=== PATIENT | male | born 1945 | race Caucasian/White ===

== ENCOUNTER 2018-12-21 14:15 | Observation (INO) | payer MEDICARE ==
[~2018-12-21] VITALS: Ht 180.3 cm; Wt 88.9 kg
--- NOTE | 2018-12-21 13:58 | NUR ---
PT ARRIVED VIA TRANSPORT FROM [facility] IN [place], PT VERY WEAK TRANSFERRED TO BED FROM [facility]. FAMILY AT BEDSIDE. PT DROWSY, ALERT AND ORIENTED X4, BUT PER FAMILY PT BECOMES CONFUSED WITH FEVERS. ORIENTED PT AND FAMILY TO ROOM AND CALL LIGHT, EDUCATED ON DROPLET PRECAUTIONS, PT DOES NOT OPEN HIS EYES, ANSWERS ARE HESITANT DOES NOT ANSWER ALL QUESTIONS. AT BEDSIDE, SHE ANSWERS THE QUESTIONS HE DOES NOT ANSWER. DISCUSSED POC, ALL IN AGREEMENT. PT DRINKING WATER NO SIGNS OF DISTRESS NOTED, RESP EVEN AND UNLABORED, 02 3L NC. ADMISSION ASSESSMENT COMPLETED AT THIS TIME. CALL LIGHT IN REACH,CONTINUE TO MONITOR.
[2018-12-21 14:00] VITALS: BP 119/62
[~2018-12-21 14:15] MED LIST: AMOXICILLIN500 MG PO; ASPIRIN CHEWABL81 MG PO; ASPIRIN LOW DOS81 M2 PO; ASPIRIN81 MG PO; ATENOLOL25 MG PO; FENOFIBRATE145 MG PO; FISH OIL1000 MG PO; FLOMAX0.4 M1 PO; GLIPIZIDE5 MG PO; JANUMET1 TA1 PO; JANUVIA50 MG PO; LEVEMIR1000 UNITS SC; LOPRESSOR 550 MG/TAB PO; MAGNESIUM400 MG PO; METFORMIN HCL500 M1 PO; METOPROL TAR25 MG PO; MULTI VIT PO; OMEPRAZOLE20 M2 PO; RYTHMOL150 MG PO; SIMVASTATIN20 MG PO; TAMSULOSIN0.4 MG PO; TENORMIN PO; TRICOR145 MG PO; WARFARIN4 MG PO; ZOFRAN ODT4 MG PO
[2018-12-21 14:46] LABS: HEMATOCRIT 34.1 % (39.0-50.0); HEMOGLOBIN 11.1 g/dl (14.0-18.0); IMMATURE GRANULOCYTES 0.2 % (0.0-5.0); MEAN CELL VOLUME 85.9 fL CALC (80.0-100.0); MEAN CORPUSCULAR HGB CONC 32.6 g/L CALC (32.0-36.0); NEUT# 4.47 thou/uL (1.82-7.42); RED BLOOD COUNT 3.97 mill/uL (4.70-6.10); RED CELL DISTRI WIDTH 13.9 % (11.5-15.5)
--- NOTE | 2018-12-21 15:34 | NUR ---
PT MEDICATED WITH TAMIFLU, NOTED PT SHIVERING, REQUESTING BLANKETS. NOTIFIED FREIGHT SHIPPING AGENT FOR TYLENOL ORDERS. CALL LIGHT IN REACH,CONTINUE TO MONITOR.
--- NOTE | 2018-12-21 16:01 | NUR ---
PT MEDICATED WITH TYLENOL. PT REQUESTING BLANKETS INFORMED PT THAT WOULD ONLY INCREASE HIS TEMPERATURE. PT UPSET STATES WE ARE NOT DOING ANYTHING FOR HIM. EDUCATED PT AND FAMILY THE IMPORTANCE OF NOT COVERING PT WITH BLANKETS AND WARMING THE ROOM. FAMILY IN AGREEMENT, WILL RECHECK ONCE DUE. CALL LIGHT IN REACH,CONTINUE TO MONITOR.
[2018-12-21 16:23] LABS: URINE BILIRUBIN - DIPSTICK NEGATIVE (NEGATIVE); URINE BLOOD DIPSTICK NEGATIVE (NEGATIVE); URINE COLOR YELLOW; URINE GLUCOSE - DIPSTICK NEGATIVE (NEGATIVE); URINE KETONE NEGATIVE (NEGATIVE); URINE LEUK ESTERASE NEGATIVE (NEGATIVE); URINE NITRITE - DIPSTICK NEGATIVE (Negative); URINE PROTEIN - DIPSTICK NEGATIVE (NEG-TRACE); URINE SPECIFIC GRAVITY <=1.005; URINE UROBILINOGEN - DIPSTICK 0.2 E.U./dL (0.2)
--- NOTE | 2018-12-21 17:33 | NUR ---
DISCUSSED WITH PT AND FAMILY OF NPO STATUS, IVF INITAITED AT THIS TIME. CALL LIGHT IN REACH,CONTINUE TO MONITOR.
[2018-12-21] MEDS ORDERED: TENORMIN25 M1 PO (18:11)
[2018-12-21] MEDS ORDERED: LEVEMIR FL100 UNIT/M SC (18:14)
[2018-12-21 19:35] VITALS: BP 152/76
--- NOTE | 2018-12-21 20:19 | NUR ---
RECEIVED REPORT FROM NURSE KINSEY, PATIENT IN BED, MAINTAINED ON DROPLET PREACUTION, FEELS WARM, WILL CHECK TEMP, EVEN UNLABORED BREATHING
--- NOTE | 2018-12-21 22:59 | NUR ---
PATIENT CURRENTLY RESTING IN BED, NO DISCOMFORTS NOTED AT THIS TIME, RECHECKED TEMP 99.5 f. EVEN UNLABORED BREATHING CALL LIGHT AT REACH, IN ROOM.
[2018-12-22] VITALS (7 sets, daily range): BP systolic 116–141; BP diastolic 61–79
--- NOTE | 2018-12-22 01:00 | NUR ---
PATIENTS TEMP WAS 100.6, PRN TYLENOL RECTAL SUPP GIVEN, WILL RECHECKED TEMP, CURRENTLY RESTING IN BED EYES CLOSED CALL LIGHT AT REACH
--- NOTE | 2018-12-22 04:26 | NUR ---
RECHEKED TEMP 101F PRN TYLENOL SUPP GIVEN AT THIS TIME, WILL REEVALAUTE TEMP, PT ALERT AND ORIENTED X3, RESTLESS, IN ROOM, WILL CONTINUE TO MONITOR.CALL LIGHT AREACH
[2018-12-22 05:07] LABS: HEMATOCRIT 34.1 % (39.0-50.0); HEMOGLOBIN 10.9 g/dl (14.0-18.0); IMMATURE GRANULOCYTES 0.4 % (0.0-5.0); MEAN CELL VOLUME 86.3 fL CALC (80.0-100.0); MEAN CORPUSCULAR HGB 27.6 pG CALC (26.0-32.0); NEUT# 3.31 thou/uL (1.82-7.42); RED BLOOD COUNT 3.95 mill/uL (4.70-6.10); RED CELL DISTRI WIDTH 14.1 % (11.5-15.5)
[2018-12-22 05:31] LABS: ALBUMIN 4.2 g/dL (3.2-5.0); ALKALINE PHOSPHATASE 74 u/l (38-126); ANION GAP 15 (6-22 (CALC)); BILIRUBIN, TOTAL 0.4 mg/dL (0.0-1.4); BUN 8 mg/dL (8-23); BUN/CREATININE RATIO 10 (12-20 (CALC)); CARBON DIOXIDE 27 mmol/l (22-30); CHLORIDE 99 mmol/l (95-108); CREATININE 0.8 mg/dL (0.7-1.3); GFR > 60 ML/MIN (>=60 (CALC)); GFR FOR AFR.AMER. > 60 ML/MIN (>=60 (CALC)); MAGNESIUM 1.9 mg/dL (1.6-2.3); POTASSIUM 4.1 mmol/l (3.5-5.1); SGOT/AST 38 u/l (19-48); SODIUM 137 mmol/l (137-146); TOTAL PROTEIN 7.5 g/dL (6.3-8.2)
[2018-12-22 05:34] LABS: INTERNATIONAL NORMALIZED RATIO 1.3 RATIO (0.7-1.3); PROTHROMBIN TIME 13.6 SECONDS (9.0-12.5)
--- NOTE | 2018-12-22 07:10 | NUR ---
REPORT RECEIVED FROM TAMARA CLARK;PT APPEARS TO BE RESTING IN SEMI FOWLERS POSITION WITH SPOUSE AT BEDSIDE;INTRODUCED SELF TO PT AND POC DISCUSSED;RESPIRATIONS EVEN AND UNLABORED ON RA;NO S/S OF DISTRESS NOTED;DROPLET PRECAUTIONS REMAIN IN PLACE;PT DENIES ANY ADDITIONAL NEEDS AT THIS TIME AND IS ENCOURAGED TO CALL FOR ASSISTANCE IF NEEDED;NPO DIET REINFORCED AND PT VERBALIZES UNDERSTANDING;FALL PRECAUTIONS IN PLACE WITH BED IN THE LOWEST POSITION AND CALL LIGHT IN REACH;WILL CONTINUE TO MONITOR
--- NOTE | 2018-12-22 09:10 | NUR ---
PT RESTING IN SEMI FOWLERS POSITION WITH SPOUSE AT BEDSIDE;DROPLET PRECAUTIONS IN PLACE FOR POSITIVE FLU;PT ALERT AND ORIENTED X3;VS OBTAINED AND ASSESSMENT COMPLETED,CURRENT TEMP 98.7;PT DENIES ANY CURRENT PAIN BUT DOES REQUEST "COFFEE",PT EDUCATED ON NPO DIET AND VERBALIZES UNDERSTANDING;RESPIRATIONS EVEN AND UNLABORED ON 02 @ 2L VIA NC;ABDOMEN DISTENDED/SOFT ON PALPATION AND ACTIVE IN ALL 4 QUADRANTS;STRONG PEDAL PULSES;SKIN INTACT;TELE MONITORING IN PLACE;#20G TO RAC INFUSING LR @ 100ML/HR,SITE APPEARS HEALTHY;PT AMBULATED WITH A STEADY GAIT TO RESTROOM AND VOIDED CLEAR/YELLOW URINE;RE-POSITIONED BACK INTO BED;ACCUCHECK WAS 138 THIS MORNING,NO COVERAGE NEEDED AT THIS TIME;PT DENIES ANY ADDITIONAL NEEDS AND IS ENCOURAGED TO CALL FOR ASSISTANCE IF NEEDED;FALL PRECAUTIONS IN PLACE WITH CALL LIGHT IN REACH;WILL CONTINUE TO MONITOR
--- NOTE | 2018-12-22 11:35 | NUR ---
PT RESTING AT BEDSIDE WITH SPOUSE;PT EAGER TO SEE MD;NOTIFIED PT THAT MD IS CURRENTLY MAKING ROUNDS IN ICU AND SHOULD BE AROUND SHORTLY,PT VERBALIZES UNDERSTANDING;RESPIRATIONS REMAIN EVEN AND UNLABORED ON O2 @ 3L VIA NC;PT DENIES ANY CURRENT PAIN OR NEEDS;ACCUCHECK 108, NO COVERAGE NEEDED AT THIS TIME;URINAL EMPTIED OF 375CC OF CLEAR/YELLOW URINE;IV FLUIDS CONTINUE TO INFUSE TO RAC WITH EASE;NPO DIET REINFORCED;PT ENCOURAGED TO CALL FOR ASSISTANCE IF NEEDED;CALL LIGHT IN REACH;WILL CONTINUE TO MONITOR
--- NOTE | 2018-12-22 13:05 | NUR ---
AT BEDSIDE DISCUSSING POC.
--- NOTE | 2018-12-22 14:10 | NUR ---
PT FAMILY USED CALL LIGHT TO CALL STAFF MEMBER;PT SITTING ON SIDE OF BED, ALERT AND ORIENTED BUT WEAK;PT HAD ATTEMPTED TO AMBULATE ON HIS OWN TO RESTROOM AND BECAME WEAK;VS OBTAINED BP 131/61 HR 67 O2 SATS 95% ON O2 @ 3L VIA NC;PT HAD A LARGE BOWEL MOVEMENT;GABRIELA CARE PROVIDED AND PT RE-POSITIONED BACK INTO BED;PT DENIES ANY CURRENT NEEDS;ENCOURAGED FAMILY AND PT TO CALL FOR ASSISTANCE WHEN NEEDED;FALL PRECAUTIONS IN PLACE WITH CALL LIGHT IN REACH;WILL CONTINUE TO MONITOR
--- NOTE | 2018-12-22 16:05 | NUR ---
PT RESTING ON THE BEDSIDE WITH FAMILY AT BEDSIDE;PT REQUEST TO SIT IN THE CHAIR AND AMBULATED WITH A STEADY GAIT AND ONE PERSON ASSIST;IV FLUIDS CONTINUE TO INFUSE TO RAC WITH EASE;RESPIRATIONS EVEN AND UNLABORED ON 02 @ 3L VIA NC;TELE MONITORING IN PLACE;PT DENIES ANY CURRENT NEEDS AND IS ENCOURAGED TO CALL FOR ASSISTANCE IF NEEDED;FALL PRECAUTIONS REMAIN IN PLACE WITH CALL LIGHT IN REACH;WILL CONTINUE TO MONITOR
--- NOTE | 2018-12-22 19:00 | NUR ---
RECEIVED REPORT FROM NURSE LAURA PT IN SLEEPING IN BED, NO DISCOMFORT NOTED AT THIS TIME, IN ROOM, CALL LIGHT AT REACH
--- NOTE | 2018-12-23 | NUR ---
PATIENT CURRENTLY RESTING IN BED, ON CONTINOUS O2 AT 3LPM, WITH EVEN UNLABORED BREATHING, MAINTAINED ON DROPLET PRECAUTION CALL LIGHT WITHIN REACH.
--- NOTE | 2018-12-23 02:30 | NUR ---
PATIENT SITTING ON CHAIR REQUESTED TO CHECK BLOOD SUGAR, PATIENT ASYMPTOMATIC AT THIS TIME, STATATED THAT HE USUALLY DROPS IN THE MORNING BS 128MG/DL.
--- NOTE | 2018-12-23 04:37 | NUR ---
PATIENT RESTING IN BED, PRN TYLENOL EFFECTIVE, NO DISCOMFORTS NOTED AT THIS TIME, REMAINS ON DROPLET PRECAUTION, IN ROOM, STILL ON CONTINUOUS O2 AT 3LPM, WITH EVEN UNLABORED BREATHING. CALL LIGHT AT REACH
[2018-12-23 05:15] VITALS: BP 107/64
--- NOTE | 2018-12-23 07:10 | NUR ---
REPORT RECEIVED FROM TAMARA CLARK;PT OOB RESTING IN RECLINER WITH SPOUSE AT BEDSIDE;PT DENIES ANY CURRENT PAIN OR NEEDS;RESPIRATIONS EVEN AND UNLABORED ON RA;IV FLUIDS CONTINUE TO INFUSE WITH EASE TO RAC;PT DENIES ANY ADDITIONAL NEEDS AT THIS TIME AND IS ENCOURAGED TO CALL FOR ASSISTANCE IF NEEDED;FALL PRECAUTIONS IN PLACE WITH CALL LIGHT IN REACH;WILL CONTINUE TO MONITOR
[2018-12-23 09:05] VITALS: BP 128/80
--- NOTE | 2018-12-23 09:05 | NUR ---
PT OOB RESTING IN RECLINER WITH SPOUSE AT SIDE;ALERT AND ORIENTED X3;VS OBTAINED AND ASSESSMENT COMPLETED;PT DENIES ANY CURRENT PAIN,PAIN SCALE AND REPORTING EDUCATED;RESPIRATIONS EVEN AND UNLABORED ON RA,CLEAR LUNG SOUNDS;PT IS ON CONTACT PRECAUTIONS FOR POSITIVE INFLUENZA A;ABDOMEN SOFT ON PALPATION AND ACTIVE IN ALL 4 QUADRANTS;STRONG PEDAL PULSES;SKIN INTACT;#20G TO RAC INFUSING LR @ 100ML/HR,SITE APPEARS HEALTHY;ACCUCHECK WAS 127 THIS MORNING,NO COVERAGE NEEDED AT THIS TIME;PT DENIES ANY CURRENT NEEDS AND IS ENCOURAGED TO CALL FOR ASSISTANCE IF NEEDED;FALL PRECAUTIONS IN PLACE WITH CALL LIGHT IN REACH;WILL CONTINUE TO MONITOR
[2018-12-23 09:08] VITALS: BP 128/80
--- NOTE | 2018-12-23 11:11 | NUR ---
AT BEDSIDE DISCUSSING POC INCLUDING D/C, PT AND SPOUSE VERBALIZE UNDERSTANDING.
--- NOTE | 2018-12-23 11:45 | NUR ---
PT OOB RESTING IN RECLINER WITH SPOUSE IN ROOM;RESPIRATIONS REMAIN EVEN AND UNLABORED ON RA;PT DENIES ANY CURRENT PAIN OR NEEDS;IV SITE REMAINS PATENT INFUSING LR WITH EASE;ACCUCHECK WAS 184 AND PT COVERED WITH NOVOLOG SLIDING SCALE;PT DENIES ANY ADDITIONAL NEEDS AT THIS TIME;ENCOURAGED TO CALL FOR ASSISTANCE IF NEEDED;CALL LIGHT IN REACH;WILL CONTINUE TO MONITOR
[2018-12-23] MEDS ORDERED: TAM75CAP PO (14:00)
--- NOTE | 2018-12-23 14:30 | NUR ---
ALL DISCHARGE INSTRUCTIONS PROVIDED AT THIS TIME;PERSCRIPTION DISCUSSED INDEPTH;ALL QUESTIONS ANSWERED;IV SITE REMOVED WITH CATHETER INTACT;WHEELCHAIR TO BE PROVIDED FOR DISCHARGE HOME.
--- NOTE | 2018-12-23 15:05 | NUR ---
Discharge instructions given. Patient verbalizes understanding of same. Discharged in stable condition via Wheelchair to Home with spouse. All belongings sent with pt.
== END 2018-12-23 15:05 | disposition home or self-care (01) ==
LOC: MS2 14:15
PROVIDERS: Nurse Practitioner Family; ADMIT Internal Medicine; ATTEND Internal Medicine
DX: J10.1 Influenza due to other identified influenza virus with other respiratory manifestations (principal); I48.0 Paroxysmal atrial fibrillation; I10 Essential (primary) hypertension; I25.10 Atherosclerotic heart disease of native coronary artery without angina pectoris; E11.9 Type 2 diabetes mellitus without complications; E78.5 Hyperlipidemia, unspecified; D64.9 Anemia, unspecified; K21.9 Gastro-esophageal reflux disease without esophagitis; Z85.46 Personal history of malignant neoplasm of prostate
CPT/HCPCS: G0378

== ENCOUNTER → 2019-01-23 | Outpatient (REF) | payer MEDICARE ==
[~2019-01-23] MED LIST changes: +LEVEMIR FL100 UNIT/M SC; +METFORMIN500 MG PO; +TAM75CAP PO; +TENORMIN25 M1 PO
== END | disposition home or self-care (01) ==
LOC: MRI 12:50
PROVIDERS: ATTEND Nurse Practitioner
DX: M54.2 Cervicalgia (principal); M79.604 Pain in right leg; M79.89 Other specified soft tissue disorders

== ENCOUNTER 2019-03-01 02:29 | Emergency (ER) | payer MEDICARE ==
[~2019-03-01] VITALS: Ht 180.3 cm; Wt 86.4 kg
[~2019-03-01 02:29] MED LIST changes: -METFORMIN500 MG PO
[2019-03-01] MEDS ORDERED: METFORMIN500 MG PO (02:59)
[2019-03-01 03:15] LABS: HEMATOCRIT 36.1 % (39.0-50.0); HEMOGLOBIN 11.5 g/dl (14.0-18.0); IMMATURE GRANULOCYTES 0.4 % (0.0-5.0); MEAN CELL VOLUME 83.6 fL CALC (80.0-100.0); MEAN CORPUSCULAR HGB 26.6 pG CALC (26.0-32.0); MEAN CORPUSCULAR HGB CONC 31.9 g/L CALC (32.0-36.0); NEUT# 7.77 thou/uL (1.82-7.42); RED BLOOD COUNT 4.32 mill/uL (4.70-6.10); RED CELL DISTRI WIDTH 14.2 % (11.5-15.5)
[2019-03-01 03:35] LABS: ALBUMIN 4.5 g/dL (3.2-5.0); ALKALINE PHOSPHATASE 98 u/l (38-126); ANION GAP 18 (6-22 (CALC)); BILIRUBIN, TOTAL 0.6 mg/dL (0.0-1.4); BUN 18 mg/dL (8-23); BUN/CREATININE RATIO 20 (12-20 (CALC)); CARBON DIOXIDE 24 mmol/l (22-30); CHLORIDE 98 mmol/l (95-108); CREATININE 0.9 mg/dL (0.7-1.3); GFR > 60 ML/MIN (>=60 (CALC)); GFR FOR AFR.AMER. > 60 ML/MIN (>=60 (CALC)); POTASSIUM 4.3 mmol/l (3.5-5.1); SGOT/AST 22 u/l (19-48); SODIUM 136 mmol/l (137-146)
[2019-03-01 05:29] LABS: URINE BILIRUBIN - DIPSTICK NEGATIVE (NEGATIVE); URINE BLOOD DIPSTICK TRACE-LYSED (NEGATIVE); URINE COLOR YELLOW; URINE GLUCOSE - DIPSTICK NEGATIVE (NEGATIVE); URINE KETONE NEGATIVE (NEGATIVE); URINE LEUK ESTERASE NEGATIVE (NEGATIVE); URINE NITRITE - DIPSTICK NEGATIVE (Negative); URINE PROTEIN - DIPSTICK NEGATIVE (NEG-TRACE); URINE UROBILINOGEN - DIPSTICK 0.2 E.U./dL (0.2)
[2019-03-01 06:24] VITALS: BP 116/72
== END 2019-03-01 06:26 | disposition home or self-care (01) ==
LOC: ED 02:29
PROVIDERS: Family Medicine
DX: B34.9 Viral infection, unspecified (principal); E11.9 Type 2 diabetes mellitus without complications; I10 Essential (primary) hypertension; I48.91 Unspecified atrial fibrillation

== ENCOUNTER 2019-03-06 10:47 | Emergency (ER) | payer MEDICARE ==
[~2019-03-06] VITALS: Ht 180.3 cm; Wt 82.0 kg
[~2019-03-06 10:47] MED LIST changes: +METFORMIN500 MG PO
[2019-03-06 11:57] LABS: HEMATOCRIT 35.1 % (39.0-50.0); HEMOGLOBIN 10.8 g/dl (14.0-18.0); IMMATURE GRANULOCYTES 0.4 % (0.0-5.0); MEAN CORPUSCULAR HGB 26.2 pG CALC (26.0-32.0); MEAN CORPUSCULAR HGB CONC 30.8 g/L CALC (32.0-36.0); NEUT# 10.49 thou/uL (1.82-7.42); RED BLOOD COUNT 4.13 mill/uL (4.70-6.10)
[2019-03-06 12:03] LABS: ALBUMIN 4.2 g/dL (3.2-5.0); ANION GAP 16 (6-22 (CALC)); BILIRUBIN, TOTAL 0.9 mg/dL (0.0-1.4); BUN 12 mg/dL (8-23); BUN/CREATININE RATIO 16 (12-20 (CALC)); CARBON DIOXIDE 27 mmol/l (22-30); CHLORIDE 98 mmol/l (95-108); CREATININE 0.8 mg/dL (0.7-1.3); GFR > 60 ML/MIN (>=60 (CALC)); GFR FOR AFR.AMER. > 60 ML/MIN (>=60 (CALC)); LIPASE 167 u/l (23-300); POTASSIUM 4.4 mmol/l (3.5-5.1); SODIUM 137 mmol/l (137-146); TOTAL PROTEIN 7.5 g/dL (6.3-8.2)
[2019-03-06 12:04] LABS: SGOT/AST 678 u/l (19-48)
[2019-03-06 12:05] LABS: ALKALINE PHOSPHATASE 264 u/l (38-126)
[2019-03-06 12:31] LABS: URINE BILIRUBIN - DIPSTICK NEGATIVE (NEGATIVE); URINE BLOOD DIPSTICK NEGATIVE (NEGATIVE); URINE COLOR YELLOW; URINE GLUCOSE - DIPSTICK NEGATIVE (NEGATIVE); URINE KETONE NEGATIVE (NEGATIVE); URINE LEUK ESTERASE NEGATIVE (NEGATIVE); URINE NITRITE - DIPSTICK NEGATIVE (Negative); URINE PH 7.5 (4.5-8.0); URINE PROTEIN - DIPSTICK NEGATIVE (NEG-TRACE); URINE UROBILINOGEN - DIPSTICK 0.2 E.U./dL (0.2)
[2019-03-06] MEDS ORDERED: ONDANSETRON4 MG PO (15:28)
[2019-03-06 17:45] LABS: INTERNATIONAL NORMALIZED RATIO 2.3 RATIO (0.7-1.3)
[2019-03-06 17:53] VITALS: BP 120/60
== END 2019-03-06 17:53 | disposition short-term general hospital (02) ==
LOC: ED 10:47
PROVIDERS: Emergency Medicine
DX: K80.20 Calculus of gallbladder without cholecystitis without obstruction (principal); R50.9 Fever, unspecified; E11.9 Type 2 diabetes mellitus without complications; I10 Essential (primary) hypertension; I48.91 Unspecified atrial fibrillation
CPT/HCPCS: J0131; Q9967

== ENCOUNTER 2019-04-09 07:40 | Day surgery (SDC) | payer MEDICARE ==
[~2019-04-09 07:40] MED LIST changes: +AUGMENTIN875TAB PO; +ONDANSETRON4 MG PO; +[UNRECOGNIZED DRUG - OTHER] PO
[2019-04-09] MEDS ORDERED: PERCOCET 10/31 COMBO PO (10:33)
[2019-04-09 11:42] VITALS: BP 1334/69
== END 2019-04-09 11:25 | disposition home or self-care (01) ==
LOC: ORM 07:40
PROVIDERS: ATTEND Surgery
PROC: 0FT44ZZ Resection of Gallbladder, Percutaneous Endoscopic Approach (ICD-10-PCS; principal; 2019-04-09)
DX: K80.12 Calculus of gallbladder with acute and chronic cholecystitis without obstruction (principal); E11.9 Type 2 diabetes mellitus without complications; I48.91 Unspecified atrial fibrillation; F17.290 Nicotine dependence, other tobacco product, uncomplicated; Z79.4 Long term (current) use of insulin; Z79.01 Long term (current) use of anticoagulants
CPT/HCPCS: J0131; J2710; Q9967

== ENCOUNTER 2020-09-27 10:10 | Day surgery (SDC) | payer MEDICARE ==
[~2020-09-27] VITALS: Ht 182.9 cm; Wt 88.5 kg
[~2020-09-27 10:10] MED LIST changes: +FAMOTIDINE20 M1 PO; +FENOFIBRATE40 MG PO; +METFORMIN500 M2 PO; -METFORMIN500 MG PO; +PERCOCET 10/31 COMBO PO
[2020-09-27 13:26] VITALS: BP 128/72
== END 2020-09-27 12:25 | disposition home or self-care (01) ==
LOC: ENDO 10:10
PROVIDERS: ATTEND Surgery
PROC: 0DB68ZX Excision of Stomach, Via Natural or Artificial Opening Endoscopic, Diagnostic (ICD-10-PCS; principal; 2020-09-27)
PROC: 0DBP8ZX Excision of Rectum, Via Natural or Artificial Opening Endoscopic, Diagnostic (ICD-10-PCS; 2020-09-27)
DX: K29.50 Unspecified chronic gastritis without bleeding (principal); K44.9 Diaphragmatic hernia without obstruction or gangrene; Z12.11 Encounter for screening for malignant neoplasm of colon; K62.6 Ulcer of anus and rectum; K64.8 Other hemorrhoids; E11.9 Type 2 diabetes mellitus without complications; F17.290 Nicotine dependence, other tobacco product, uncomplicated; Z79.4 Long term (current) use of insulin; Z79.899 Other long term (current) drug therapy; Z20.828 Contact with and (suspected) exposure to other viral communicable diseases

== ENCOUNTER 2020-10-07 05:47 | Observation (INO) | payer MEDICARE ==
[~2020-10-07] VITALS: Ht 182.9 cm; Wt 87.4 kg
--- NOTE | 2020-10-07 05:50 | NUR ---
REMOVED FROM CAR WITH WC AND PLACED IN ROOM FOR TRIAGE
[2020-10-07] MEDS ORDERED: TRESIBA FL200 UNIT/M SC (06:10)
--- NOTE | 2020-10-07 06:33 | NUR ---
ATTEMPTED IV START X 3. PT KEEPS PULLING AWAY WHEN NEEDLE PIERCES JETHRO. REFUSED ADDITIONAL ATTEMPTS.
--- NOTE | 2020-10-07 06:43 | NUR ---
PATIENT AGREEABLE TO LAB ATTEMPTING TO DRAW BLOOD. PATIENT CONTINUES TO REFUSED FURTHER IV START ATTEMPTS.
--- NOTE | 2020-10-07 06:55 | NUR ---
LAB ABLE TO DRAW INITIAL LABORATORY ORDERS. PATIENT CONTINUES TO REFUSE PERIPHERAL IV START.
[2020-10-07 07:05] LABS: HEMOGLOBIN 12.9 g/dl (14.0-18.0); IMMATURE GRANULOCYTES 0.4 % (0.0-5.0); MEAN CELL VOLUME 94.3 fL CALC (80.0-100.0); MEAN CORPUSCULAR HGB 30.4 pG CALC (26.0-32.0); MEAN CORPUSCULAR HGB CONC 32.3 g/dL CAL (32.0-36.0); NEUT# 7.08 thou/uL (1.82-7.42); RED BLOOD COUNT 4.24 mill/uL (4.70-6.10); RED CELL DISTRI WIDTH 13.3 % (11.5-15.5)
--- NOTE | 2020-10-07 07:05 | NUR ---
REPORT RECEIVED FROM TAMARA MAURER. CARE ASSSUMED OF PT WITH TAMARA BUTTS.
--- NOTE | 2020-10-07 07:06 | NUR ---
HAND OFF REPORT GIVEN TO BECKIE
--- NOTE | 2020-10-07 07:15 | NUR ---
PT ASSISTED TO BEDSIDE FOR URINAL USE. URINE SAMPLE COLLECTED. PT PLACED BACK INTO BED. SPRINKLING SYSTEM INSTALLER IN PLACE. BEDSIDE.
[2020-10-07 07:23] LABS: ALBUMIN 4.3 g/dL (3.2-5.0); BUN 8 mg/dL (8-23); BUN/CREATININE RATIO 8 (12-20 (CALC)); CHLORIDE 104 mmol/l (95-108); GFR > 60 ML/MIN (>=60 (CALC)); GFR FOR AFR.AMER. > 60 ML/MIN (>=60 (CALC)); POTASSIUM 4.1 mmol/l (3.5-5.1); SODIUM 136 mmol/l (137-146); TOTAL PROTEIN 8.2 g/dL (6.3-8.2)
[2020-10-07 07:24] LABS: URINE BLOOD DIPSTICK NEGATIVE (NEGATIVE); URINE COLOR YELLOW; URINE GLUCOSE - DIPSTICK 100 mg/dL (NEGATIVE); URINE KETONE NEGATIVE (NEGATIVE); URINE LEUK ESTERASE NEGATIVE (NEGATIVE); URINE NITRITE - DIPSTICK NEGATIVE (Negative); URINE PROTEIN - DIPSTICK TRACE mg/dL (NEG-TRACE); URINE SPECIFIC GRAVITY 1.015; URINE UROBILINOGEN - DIPSTICK 0.2 E.U./dL (0.2)
[2020-10-07 07:30] LABS: ALKALINE PHOSPHATASE 211 u/l (38-126); ANION GAP 17 (6-22 (CALC)); BILIRUBIN, TOTAL 2.2 mg/dL (0.0-1.4); CARBON DIOXIDE 19 mmol/l (22-30); SGOT/AST 139 u/l (19-48)
[2020-10-07 07:41] LABS: URINE BILIRUBIN - DIPSTICK SMALL (NEGATIVE)
[2020-10-07 08:00] LABS: INTERNATIONAL NORMALIZED RATIO 1.9 RATIO (0.7-1.3); PROTHROMBIN TIME 18.1 SECONDS (9.0-12.5)
--- NOTE | 2020-10-07 08:30 | NUR ---
PT RESTING COMFORTABLY AT THIS TIME WITH AT BEDSIDE. VSS. PT AND UPDATED ON POC AND FURTHER TESTING.
--- NOTE | 2020-10-07 09:30 | NUR ---
PT ROUSES EASILY. COOPERATIVE WITH CARE AT THIS TIME. VSS. AFEBRILE AT THIS TIME. UPDATED ON WAIT TIME
--- NOTE | 2020-10-07 10:00 | NUR ---
PT RETURNS FROM US. RESTING ON STRETCHER, RESP EVEN AND UNLABORED. SKIN WARM AND DRY. ADVISED OF CONT WAIT WAIT TIME FOR RESULTS.
[2020-10-07 10:43] LABS: AMYLASE 83 u/l (30-110); LIPASE 81 u/l (23-300)
--- NOTE | 2020-10-07 10:50 | NUR ---
REPORT GIVEN TO TAMARA CANELA.
--- NOTE | 2020-10-07 11:00 | NUR ---
IN ROOM TO READY PT FOR TRANSPORT TO [facility]. PT STATES "NO I DO NOT WANT TO BE ADMITTED, I WANT MY PANTS AND A CUP OF COFFEE AND TO LEAVE." ADVISED PT THAT ADMISSION TO HOSPITAL WOULD BE IN THE BEST BENEFIT TO FIND OUT THE CAUSE OF FEVER AND ELEVATED LIVER ENZ. PT ADAMANT ABOUT LEAVING AND NOT STAYING IN HOSPITAL. CONTACTED PTS MOE BRADY VIA PHONE AND SPOKE WITH PT. PER WILL ARRIVE IN 1 HR TO SPEAK WITH PT.
--- NOTE | 2020-10-07 11:20 | NUR ---
SPOKE AT LENGTH WITH PT REGARDING ADMISSION AND NEED FOR FURTHER TESTING. PT STATES HE WANTS TO GO HOME AND DRINK HIS COFFEE. DISCUSSED ADMIT PLAN OF CT ABD AND PERHAPS AFTER TESTING PT COULD HAVE COFFEE. PT STATES "I WILL WAIT FOR MY " CALL PLACED TO PTS AND CARIDAD BRINK DISCUSSED PTS HESITANCE FOR ADMISSION. STATES SHE CAN BE HERE WITHIN THE HOUR.
--- NOTE | 2020-10-07 12:10 | NUR ---
PTS ARRIVES AND PT RESTING WITH EYES CLOSED. ROUSES AND DISCUSSES NEED FOR CT. PT CONSENTED TO CT AND ALLOWS BLOOD DRAW FOR AMMONIA LEVEL.
--- NOTE | 2020-10-07 12:25 | NUR ---
ASSISTED PT UP TO BEDSIDE TO USE URINAL.PT MORE STEADY THAN EARLIER. PT COOPERATIVE BUT STATES HE STILL DOES NOT WANT TO BE ADMITTED "I WANT TO GO HOME".REMINDED PT THOUGHT SCNA AND LAB RESULTS WERE IMPORTANT. PT IN NO AICUTE DISTRESS.
--- NOTE | 2020-10-07 13:10 | NUR ---
PT SITTING UP AT BEDSIDE TALKING WITH . VSS AFEBRILE
--- NOTE | 2020-10-07 13:25 | NUR ---
PT RESTING ON STRETCHER. TEMP RECHECK OF 97.8. PT REQUESTING BLANKET. BEDSIDE. CONT TO WAIT FOR CT SCAN.
--- NOTE | 2020-10-07 14:00 | NUR ---
DAUGHTER AT BEDSIDE TO DISCUSS ADMIT WITH FATHER. PT ADAMNENT THAT HE WANTS A CUP OF COFFEE,DISCUSSED WITH KYLE CASILLAS APRN, AGREEABLE TO A CUP OF COFFEE FOR PT. PT HAPPY WITH COFFEE GIVEN.
--- NOTE | 2020-10-07 14:45 | NUR ---
PT BECAME TREMULOUSWITH MOVING INTO CHAIR FOR TRANSPORT. TEMP 98.2 ORALLY.
--- NOTE | 2020-10-07 14:45 | NUR ---
DAUGHTER STATES PT IS AGREEABLE TO ADMIT.PT READIED FOR TRANSPORT. TELE IN PLACE. PT ACCOMPANIED BY DAUGHTER TO [facility]. PT AGREEABLE TO ADMIT AT THIS TIME.
--- NOTE | 2020-10-07 14:52 | NUR ---
Admission Note Report Given to: HILTON GUZMAN Transported by: X Wheelchair Stretcher Transported with: X Nurse Transporter X Patent IV O2 X Windows Server Support Technician Location: ICU X [facility] PT TRANSPORT TO [place] VIA IN STABLE CONDIITON WITH TELE IN PLACE
--- NOTE | 2020-10-07 14:52 | NUR ---
PT ARRIVED VIA WC WITH STAFF AND FAMILY , IV SITE AND TELE MONITOR IN PLACE. PT C/O BEING COLD. NO FEVER AT THIS TIME.
[2020-10-07 15:35] VITALS: BP 133/63
--- NOTE | 2020-10-07 16:15 | NUR ---
ASSESSMENT IS COMPLETED: PT IS VERY SLEEPY, MINIMAL TALKING WITH STAFF. BREATH SOUNDS ARE CLEAR,BILATERALLY, HR IS REG,PULSES ARE STRONG X4,ABD IS SOFT AND DISTENDED. TELE MONITR #[id number] CONTINUE TO OBSERVFE AND MONTIOR. IV SITE IS FREE FROM REDNESS OR EDEMA.
--- NOTE | 2020-10-07 18:19 | NUR ---
FAMILY IS UNDER THE IMPRESSION THAT SOMEONE CAN STAY THE NIGHT. INFORMED SUPERVIOSR
--- NOTE | 2020-10-07 18:41 | NUR ---
SPOKE WITH THE SPOUSE. STATED" I NEED TO STAY, I AM NOT HIS FAVORITE PERSON, BUT HE GETS CONFUSED"
--- NOTE | 2020-10-07 19:00 | NUR ---
REPORT RECEIVED FROM Patricia JACKSON LPN, CARE OF PT ASSUMED AT THIS TIME.
--- NOTE | 2020-10-07 19:07 | NUR ---
SPOKE WITH FAMILY PT HAD NOT HAD A BM IN 10 DAYS SINCE HE HAD A COLONOSCOPY LAST SATURDAY. A WEEK AGO.
[2020-10-07 19:55] VITALS: BP 119/72
--- NOTE | 2020-10-07 21:25 | NUR ---
PT RESTING IN BED, PHYSICAL ASSESMENT COMPLETE. PT SITS UP AT SIDE OF BED TO TAKE HIS MEDICATIONS. SCHEDULED MEDICATIONS ADMINISTERED, SEE E-MAR. PTS AT BEDSIDE. PT HAS RECEIVED PERMISSION TO SPEND NIGHT WITH PT FROM HOSPITAL ADMINISTRATION. PLAN OF CARE REVIEWED. PT AND VERBALIZE UNDERSTANDING AND DENY QUESTIONS. PT PROVIDED WITH COFFEE AND PILLOW AND BLANKET FOR HIS PER THEIR REQUEST. DENY FURTHER NEEDS. CALL WITHIN REACH, AGREES TO CALL PRN.
[2020-10-07 23:50] VITALS: BP 127/66
--- NOTE | 2020-10-08 01:03 | NUR ---
PT APPEARS TO BE SLEEPING COMFORTABLY, EYES CLOSED, RESPIRATIONS REGULAR AND UNLABORED. NO APPARENT DISTRESS. CALL REMIANS WITHIN REACH. ASLEEP ON COUCH IN ROOM.
--- NOTE | 2020-10-08 03:45 | NUR ---
PT MEDICATED WITH PRN APAP FOR C/O HEADACHE. MODERATE SIZED SOLID BOWEL MOVEMENT EMPTIED FROM COMMODE. PT REQUEST GLUCOSE CHECK, FINGER STICK IS 196 mg/dl. SPOUSE REMAINS AT BEDSIDE. PT DENIES FURTHER NEEDS AT THIS TIME. CALL WITHIN REACH, AGREES TO CALL PRN.
[2020-10-08 03:55] VITALS: BP 118/63
--- NOTE | 2020-10-08 05:25 | NUR ---
PT APPEARS TO BE SLEEPING COMFORTABLY, EYES CLOSED, RESPIRATIONS REGULAR AND UNLABORED. NO APPARENT DISTRESS. CALL REMIANS WITHIN REACH.
[2020-10-08 05:34] LABS: IMMATURE GRANULOCYTES 0.4 % (0.0-5.0); MEAN CELL VOLUME 93.6 fL CALC (80.0-100.0); MEAN CORPUSCULAR HGB 30.4 pG CALC (26.0-32.0); MEAN CORPUSCULAR HGB CONC 32.4 g/dL CAL (32.0-36.0); NEUT# 3.68 thou/uL (1.82-7.42); RED BLOOD COUNT 3.62 mill/uL (4.70-6.10); RED CELL DISTRI WIDTH 13.4 % (11.5-15.5)
[2020-10-08 05:39] LABS: HEMATOCRIT 33.9 % (39.0-50.0)
[2020-10-08 05:45] LABS: ALKALINE PHOSPHATASE 149 u/l (38-126); ANION GAP 12 (6-22 (CALC)); BUN 8 mg/dL (8-23); BUN/CREATININE RATIO 9 (12-20 (CALC)); CARBON DIOXIDE 22 mmol/l (22-30); CHLORIDE 104 mmol/l (95-108); CREATININE 0.9 mg/dL (0.7-1.3); GFR > 60 ML/MIN (>=60 (CALC)); GFR FOR AFR.AMER. > 60 ML/MIN (>=60 (CALC)); POTASSIUM 3.4 mmol/l (3.5-5.1); SGOT/AST 69 u/l (19-48); SODIUM 134 mmol/l (137-146)
[2020-10-08 05:51] LABS: INTERNATIONAL NORMALIZED RATIO 1.4 RATIO (0.7-1.3); PROTHROMBIN TIME 13.4 SECONDS (9.0-12.5)
[2020-10-08 05:53] LABS: ALBUMIN 3.4 g/dL (3.2-5.0); TOTAL PROTEIN 6.5 g/dL (6.3-8.2)
[2020-10-08 07:40] VITALS: BP 104/63
--- NOTE | 2020-10-08 07:40 | NUR ---
ASSESSMENT IS COMPLETED: IV SITE IS FREE FROM REDNESS OR EDEMA. HR IS REG,PULSES ARE STRONG X4, ABD IS SOFT WITH ACTIVE BS. BREATH SOUNDS ARE CLEAR,BILATERALLY, TELE # [id number] SR [id number]. FAMILY IN THE ROOM. CONITNUE TO OSBERVE AND MONITOR.
[2020-10-08 10:30] VITALS: BP 133/60
[2020-10-08] MEDS ORDERED: KRISTALOSE10 GM PO (11:47)
--- NOTE | 2020-10-08 12:00 | NUR ---
PT IV SITE DISCONTINUED CATHETER INTACT. NO REDNESS OR EDEMA. FAMILY IN THE ROOM. WAITING FOR DISCHARGE INSTRUCTIONS.
--- NOTE | 2020-10-08 13:30 | NUR ---
DISCHARGE INSTRUCTIONS GIVEN AND VERBALIZED UNDERSTANDING. ALL BELONGINGS WITH SPOUSE. Discharge instructions given. Patient verbalizes understanding of same. Discharged in stable condition via Wheelchair to Home with family. All belongings sent with pt.
== END 2020-10-08 13:14 | disposition home or self-care (01) ==
LOC: ED 05:47 → ED-I 09:58 → ED 10:05 → MS2 10:06
PROVIDERS: Family Medicine; Nurse Practitioner; ADMIT Internal Medicine; ATTEND Internal Medicine
DX: K59.00 Constipation, unspecified (principal); E72.20 Disorder of urea cycle metabolism, unspecified; E11.9 Type 2 diabetes mellitus without complications; I48.0 Paroxysmal atrial fibrillation; R74.8 Abnormal levels of other serum enzymes; I25.10 Atherosclerotic heart disease of native coronary artery without angina pectoris; K21.9 Gastro-esophageal reflux disease without esophagitis; I10 Essential (primary) hypertension; E78.5 Hyperlipidemia, unspecified; R16.0 Hepatomegaly, not elsewhere classified; K76.0 Fatty (change of) liver, not elsewhere classified; F17.200 Nicotine dependence, unspecified, uncomplicated; Z85.46 Personal history of malignant neoplasm of prostate; Z79.4 Long term (current) use of insulin; Z79.01 Long term (current) use of anticoagulants; Z20.828 Contact with and (suspected) exposure to other viral communicable diseases
CPT/HCPCS: G0378; Q9967

== ENCOUNTER 2020-10-15 12:53 | Emergency (ER) | payer MEDICARE ==
[~2020-10-15 12:53] MED LIST changes: +KRISTALOSE10 GM PO; +TRESIBA FL200 UNIT/M SC
== END 2020-10-15 13:33 | disposition left against medical advice (07) ==
LOC: ED 12:53 → LWOBS 13:32
DX: Z53.21 Procedure and treatment not carried out due to patient leaving prior to being seen by health care provider (principal)

== ENCOUNTER 2022-12-10 06:53 | Day surgery (SDC) | payer MEDICARE ==
[~2022-12-10] VITALS: Ht 182.9 cm; Wt 88.5 kg
[~2022-12-10 06:53] MED LIST changes: +LIPITOR40 M1 PO; +TOUJEO SOL300 UNIT/M SC; +TRESIBA100 UNIT/M SC
[2022-12-10 08:19] LABS: INTERNATIONAL NORMALIZED RATIO 1.4 RATIO (0.7-1.3); PROTHROMBIN TIME 13.4 SECONDS (9.0-12.5)
[2022-12-10 12:34] VITALS: BP 117/74
== END 2022-12-10 10:20 | disposition home or self-care (01) ==
LOC: ORM 06:53
PROVIDERS: ATTEND Internal Medicine Gastroenterology
PROC: 0DB48ZX Excision of Esophagogastric Junction, Via Natural or Artificial Opening Endoscopic, Diagnostic (ICD-10-PCS; principal; 2022-12-10)
PROC: 0DB78ZX Excision of Stomach, Pylorus, Via Natural or Artificial Opening Endoscopic, Diagnostic (ICD-10-PCS; 2022-12-10)
DX: K29.50 Unspecified chronic gastritis without bleeding (principal); K31.7 Polyp of stomach and duodenum; K22.89 Other specified disease of esophagus; K59.09 Other constipation; I25.10 Atherosclerotic heart disease of native coronary artery without angina pectoris; I10 Essential (primary) hypertension; E78.5 Hyperlipidemia, unspecified; K21.9 Gastro-esophageal reflux disease without esophagitis; I48.91 Unspecified atrial fibrillation; E11.40 Type 2 diabetes mellitus with diabetic neuropathy, unspecified; Z79.84 Long term (current) use of oral hypoglycemic drugs

== ENCOUNTER 2023-02-25 10:50 | Day surgery (SDC) | payer MEDICARE ==
[~2023-02-25] VITALS: Ht 182.9 cm; Wt 88.5 kg
[~2023-02-25 10:50] MED LIST changes: +OMEPRAZOLE10 MG PO; -OMEPRAZOLE20 M2 PO; +OZEMPIC2 MG/1.5 M SC
[2023-02-25 14:15] VITALS: BP 112/72
== END 2023-02-25 14:10 | disposition home or self-care (01) ==
LOC: ENDO 10:50 → ORM 13:55 → ENDO 14:10 → ORM 14:15
PROVIDERS: ATTEND Internal Medicine Gastroenterology
PROC: 0DBP8ZX Excision of Rectum, Via Natural or Artificial Opening Endoscopic, Diagnostic (ICD-10-PCS; principal; 2023-02-25)
DX: C20 Malignant neoplasm of rectum (principal); I10 Essential (primary) hypertension; E11.49 Type 2 diabetes mellitus with other diabetic neurological complication; I25.10 Atherosclerotic heart disease of native coronary artery without angina pectoris; I48.91 Unspecified atrial fibrillation; E78.5 Hyperlipidemia, unspecified; K21.9 Gastro-esophageal reflux disease without esophagitis; Z79.85 Long-term (current) use of injectable non-insulin antidiabetic drugs; Z79.4 Long term (current) use of insulin

== ENCOUNTER 2023-05-16 23:11 | Emergency (ER) | payer MEDICARE ==
[~2023-05-16] VITALS: Ht 182.9 cm; Wt 190.0 kg
[2023-05-16 23:23] VITALS: BP 110/64
[2023-05-16 23:30] VITALS: BP 119/68
[2023-05-16 23:45] VITALS: BP 112/63
[2023-05-16 23:47] LABS: BASO% 0.3 % (0-3); EOS% 1.7 % (0-8); HEMATOCRIT 37.5 % (39.0-50.0); HEMOGLOBIN 12.1 g/dl (14.0-18.0); IMMATURE GRANULOCYTES 0.1 % (0.0-5.0); LYMPH% 28.9 % (15-41); MEAN CELL VOLUME 89.5 fL CALC (80.0-100.0); MEAN CORPUSCULAR HGB 28.9 pG CALC (26.0-32.0); MEAN CORPUSCULAR HGB CONC 32.3 g/dL CAL (32.0-36.0); MONO% 15.9 % (2-13); NEUT# 4.01 thou/uL (1.82-7.42); NEUT% 53.1 % (42-76); RED BLOOD COUNT 4.19 mill/uL (4.70-6.10); RED CELL DISTRI WIDTH 14.1 % (11.5-15.5)
[2023-05-16 23:48] LABS: URINE BILIRUBIN - DIPSTICK NEGATIVE (NEGATIVE); URINE BLOOD DIPSTICK NEGATIVE (NEGATIVE); URINE COLOR YELLOW; URINE GLUCOSE - DIPSTICK NEGATIVE (NEGATIVE); URINE KETONE NEGATIVE (NEGATIVE); URINE LEUK ESTERASE NEGATIVE (NEGATIVE); URINE PH 7.5 (4.5-8.0); URINE PROTEIN - DIPSTICK TRACE mg/dL (NEG-TRACE); URINE UROBILINOGEN - DIPSTICK 0.2 E.U./dL (0.2)
[2023-05-16 23:51] LABS: URINE NITRITE - DIPSTICK NEGATIVE (Negative)
[2023-05-16 23:58] LABS: ALBUMIN 3.8 g/dL (3.2-5.0); ALKALINE PHOSPHATASE 106 u/l (38-126); ANION GAP 13 (6-22 (CALC)); BILIRUBIN, TOTAL 0.8 mg/dL (0.2-1.3); BUN 14 mg/dL (8-23); BUN/CREATININE RATIO 15 (12-20 (CALC)); CARBON DIOXIDE 28 mmol/l (22-30); CHLORIDE 98 mmol/l (95-108); CREATININE 0.9 mg/dL (0.7-1.3); GFR FOR AFR.AMER. > 60 ML/MIN (>=60 (CALC)); GFR OTHER RACES > 60 ML/MIN (>=60 (CALC)); LIPASE 50 u/l (23-300); POTASSIUM 3.5 mmol/l (3.5-5.1); SGOT/AST 30 u/l (19-48); SODIUM 136 mmol/l (137-146); TOTAL PROTEIN 6.6 g/dL (6.3-8.2)
[2023-05-17] VITALS: BP 117/68
[2023-05-17 00:53] VITALS: BP 130/69
[2023-05-17 01:00] VITALS: BP 137/74
[2023-05-17 02:01] VITALS: BP 124/68
[2023-05-17] MEDS ORDERED: LIDOCAINE HCL VIS2 % PO (03:35)
[2023-05-17] MEDS ORDERED: PROMETHAZINE HY25 M1 PO (03:35)
[2023-05-17 03:39] VITALS: BP 124/68
[2023-05-18] MEDS ORDERED: ATORVASTATIN CA40 MG PO (17:36)
== END 2023-05-17 04:01 | disposition home or self-care (01) ==
LOC: ED 23:11
PROVIDERS: Family Medicine
DX: R10.33 Periumbilical pain (principal); E11.9 Type 2 diabetes mellitus without complications; I48.91 Unspecified atrial fibrillation; C20 Malignant neoplasm of rectum; Z79.4 Long term (current) use of insulin; F17.200 Nicotine dependence, unspecified, uncomplicated
CPT/HCPCS: Q9967

== ENCOUNTER 2023-05-18 13:27 | Observation (INO) | payer MEDICARE ==
[~2023-05-18] VITALS: Ht 182.9 cm; Wt 85.0 kg
[2023-05-18] VITALS (9 sets, daily range): BP systolic 105–143; BP diastolic 57–86
[~2023-05-18 13:27] MED LIST changes: +LIDOCAINE HCL VIS2 % PO; +PROMETHAZINE HY25 M1 PO
[2023-05-18 15:21] LABS: BASO% 0.3 % (0-3); EOS% 0.3 % (0-8); HEMATOCRIT 38.1 % (39.0-50.0); HEMOGLOBIN 12.4 g/dl (14.0-18.0); IMMATURE GRANULOCYTES 0.3 % (0.0-5.0); LYMPH% 18.8 % (15-41); MEAN CELL VOLUME 90.5 fL CALC (80.0-100.0); MEAN CORPUSCULAR HGB 29.5 pG CALC (26.0-32.0); MEAN CORPUSCULAR HGB CONC 32.5 g/dL CAL (32.0-36.0); MONO% 21.6 % (2-13); NEUT# 4.06 thou/uL (1.82-7.42); NEUT% 58.7 % (42-76); RED BLOOD COUNT 4.21 mill/uL (4.70-6.10); RED CELL DISTRI WIDTH 15.4 % (11.5-15.5)
[2023-05-18 15:36] LABS: ALBUMIN 3.7 g/dL (3.2-5.0); ALKALINE PHOSPHATASE 96 u/l (38-126); ANION GAP 12 (6-22 (CALC)); BILIRUBIN, TOTAL 0.6 mg/dL (0.2-1.3); BUN 14 mg/dL (8-23); BUN/CREATININE RATIO 15 (12-20 (CALC)); CARBON DIOXIDE 32 mmol/l (22-30); CHLORIDE 96 mmol/l (95-108); CREATININE 0.9 mg/dL (0.7-1.3); GFR FOR AFR.AMER. > 60 ML/MIN (>=60 (CALC)); GFR OTHER RACES > 60 ML/MIN (>=60 (CALC)); POTASSIUM 3.2 mmol/l (3.5-5.1); SGOT/AST 24 u/l (19-48); SODIUM 136 mmol/l (137-146); TOTAL PROTEIN 6.7 g/dL (6.3-8.2)
[2023-05-18] MEDS ORDERED: ATORVASTATIN CA40 MG PO (17:36)
[2023-05-18 19:05] LABS: URINE BILIRUBIN - DIPSTICK NEGATIVE (NEGATIVE); URINE BLOOD DIPSTICK NEGATIVE (NEGATIVE); URINE COLOR YELLOW; URINE GLUCOSE - DIPSTICK NEGATIVE (NEGATIVE); URINE KETONE NEGATIVE (NEGATIVE); URINE LEUK ESTERASE NEGATIVE (NEGATIVE); URINE PH 6.5 (4.5-8.0); URINE PROTEIN - DIPSTICK TRACE mg/dL (NEG-TRACE); URINE UROBILINOGEN - DIPSTICK 0.2 E.U./dL (0.2)
[2023-05-18 19:10] LABS: URINE NITRITE - DIPSTICK NEGATIVE (Negative)
[2023-05-19] VITALS (7 sets, daily range): BP systolic 101–122; BP diastolic 60–69
[2023-05-19 08:04] LABS: BASO% 0.3 % (0-3); EOS% 2.3 % (0-8); HEMATOCRIT 32.8 % (39.0-50.0); HEMOGLOBIN 10.7 g/dl (14.0-18.0); IMMATURE GRANULOCYTES 0.3 % (0.0-5.0); LYMPH% 25.2 % (15-41); MEAN CELL VOLUME 90.9 fL CALC (80.0-100.0); MEAN CORPUSCULAR HGB 29.6 pG CALC (26.0-32.0); MEAN CORPUSCULAR HGB CONC 32.6 g/dL CAL (32.0-36.0); MONO% 23.3 % (2-13); NEUT# 3.01 thou/uL (1.82-7.42); NEUT% 48.6 % (42-76); RED BLOOD COUNT 3.61 mill/uL (4.70-6.10); RED CELL DISTRI WIDTH 15.9 % (11.5-15.5)
[2023-05-19 08:15] LABS: ALKALINE PHOSPHATASE 72 u/l (38-126); ANION GAP 8 (6-22 (CALC)); BILIRUBIN, TOTAL 0.5 mg/dL (0.2-1.3); BUN 9 mg/dL (8-23); BUN/CREATININE RATIO 12 (12-20 (CALC)); CARBON DIOXIDE 27 mmol/l (22-30); CHLORIDE 102 mmol/l (95-108); CREATININE 0.8 mg/dL (0.7-1.3); GFR FOR AFR.AMER. > 60 ML/MIN (>=60 (CALC)); GFR OTHER RACES > 60 ML/MIN (>=60 (CALC)); MAGNESIUM 1.6 mg/dL (1.6-2.3); SGOT/AST 23 u/l (19-48); SODIUM 134 mmol/l (137-146); TOTAL PROTEIN 5.6 g/dL (6.3-8.2)
[2023-05-19 08:18] LABS: ALBUMIN 2.9 g/dL (3.2-5.0)
[2023-05-19 08:58] LABS: PROTHROMBIN TIME 18.9 SECONDS (9.0-12.5)
[2023-05-20 00:14] VITALS: BP 111/60
[2023-05-20 04:30] VITALS: BP 118/72
[2023-05-20 06:10] VITALS: BP 110/54
[2023-05-20 08:15] VITALS: BP 109/65
[2023-05-20 08:15] LABS: BASO% 0.5 % (0-3); EOS% 3.6 % (0-8); HEMATOCRIT 37.7 % (39.0-50.0); HEMOGLOBIN 12.1 g/dl (14.0-18.0); IMMATURE GRANULOCYTES 0.6 % (0.0-5.0); LYMPH% 24.8 % (15-41); MEAN CELL VOLUME 92.9 fL CALC (80.0-100.0); MEAN CORPUSCULAR HGB 29.8 pG CALC (26.0-32.0); MEAN CORPUSCULAR HGB CONC 32.1 g/dL CAL (32.0-36.0); MONO% 26.1 % (2-13); NEUT# 2.86 thou/uL (1.82-7.42); NEUT% 44.4 % (42-76); RED BLOOD COUNT 4.06 mill/uL (4.70-6.10)
[2023-05-20 08:16] VITALS: BP 107/62
[2023-05-20 08:31] LABS: INTERNATIONAL NORMALIZED RATIO 2.1 RATIO (0.7-1.3); PROTHROMBIN TIME 20.2 SECONDS (9.0-12.5)
[2023-05-20 08:34] LABS: ANION GAP 14 (6-22 (CALC)); BUN 8 mg/dL (8-23); BUN/CREATININE RATIO 12 (12-20 (CALC)); CARBON DIOXIDE 23 mmol/l (22-30); CHLORIDE 100 mmol/l (95-108); CREATININE 0.7 mg/dL (0.7-1.3); GFR FOR AFR.AMER. > 60 ML/MIN (>=60 (CALC)); GFR OTHER RACES > 60 ML/MIN (>=60 (CALC)); MAGNESIUM 1.9 mg/dL (1.6-2.3); SODIUM 133 mmol/l (137-146)
[2023-05-20 08:35] LABS: POTASSIUM 3.9 mmol/l (3.5-5.1)
[2023-05-20 10:37] VITALS: BP 111/65
[2023-05-20] MEDS ORDERED: LEVOFLOXACIN500MG PO (12:46)
[2023-05-20] MEDS ORDERED: AMOX/K CLAV875 M1 PO (12:46)
[2023-05-20] MEDS ORDERED: DICYCLOMINE10 MG PO (12:47)
[2023-05-20] MEDS ORDERED: FLORASTOR250 M1 PO (12:50)
== END 2023-05-20 13:41 | disposition home health service (06) ==
LOC: ED 13:27 → MS2 17:10
PROVIDERS: Family Medicine; ADMIT Internal Medicine; ATTEND Internal Medicine
DX: R50.9 Fever, unspecified (principal); R19.7 Diarrhea, unspecified; R10.13 Epigastric pain; R78.81 Bacteremia; E87.6 Hypokalemia; C20 Malignant neoplasm of rectum; I10 Essential (primary) hypertension; E11.9 Type 2 diabetes mellitus without complications; I48.0 Paroxysmal atrial fibrillation; I25.10 Atherosclerotic heart disease of native coronary artery without angina pectoris; K21.9 Gastro-esophageal reflux disease without esophagitis; E78.5 Hyperlipidemia, unspecified; Z79.4 Long term (current) use of insulin; Z85.46 Personal history of malignant neoplasm of prostate; Z20.822 Contact with and (suspected) exposure to COVID-19
CPT/HCPCS: J0131; J3475; Q9967

== ENCOUNTER 2023-06-30 21:05 | Emergency (ER) | payer MEDICARE ==
[~2023-06-30] VITALS: Ht 182.9 cm; Wt 83.9 kg
[~2023-06-30 21:05] MED LIST changes: +AMOX/K CLAV875 M1 PO; +ATORVASTATIN CA40 MG PO; +DICYCLOMINE10 MG PO; +FLORASTOR250 M1 PO; +LEVOFLOXACIN500MG PO
[2023-06-30] MEDS ORDERED: ATENOLOL25 MG PO (21:34)
[2023-06-30] MEDS ORDERED: ONDANSETRON ODT8 MG PO (21:38)
[2023-06-30 22:50] LABS: BASO% 0.1 % (0-3); EOS% 0.4 % (0-8); HEMOGLOBIN 12.5 g/dl (14.0-18.0); IMMATURE GRANULOCYTES 0.1 % (0.0-5.0); LYMPH% 26.6 % (15-41); MEAN CELL VOLUME 93.1 fL CALC (80.0-100.0); MEAN CORPUSCULAR HGB 30.6 pG CALC (26.0-32.0); MEAN CORPUSCULAR HGB CONC 32.9 g/dL CAL (32.0-36.0); MONO% 12.5 % (2-13); NEUT# 4.27 thou/uL (1.82-7.42); NEUT% 60.3 % (42-76); RED BLOOD COUNT 4.08 mill/uL (4.70-6.10); RED CELL DISTRI WIDTH 16.8 % (11.5-15.5)
[2023-06-30 23:00] LABS: ALKALINE PHOSPHATASE 273 u/l (38-126); ANION GAP 13 (6-22 (CALC)); BILIRUBIN, TOTAL 0.8 mg/dL (0.2-1.3); BUN 12 mg/dL (8-23); BUN/CREATININE RATIO 14 (12-20 (CALC)); CARBON DIOXIDE 29 mmol/l (22-30); CHLORIDE 97 mmol/l (95-108); CREATININE 0.9 mg/dL (0.7-1.3); GFR FOR AFR.AMER. > 60 ML/MIN (>=60 (CALC)); GFR OTHER RACES > 60 ML/MIN (>=60 (CALC)); POTASSIUM 3.5 mmol/l (3.5-5.1); SGOT/AST 536 u/l (19-48); SODIUM 135 mmol/l (137-146); TOTAL PROTEIN 7.3 g/dL (6.3-8.2)
[2023-07-01 01:05] VITALS: BP 136/71
== END 2023-07-01 01:12 | disposition home or self-care (01) ==
LOC: ED 21:05
PROVIDERS: Family Medicine
DX: K59.00 Constipation, unspecified (principal); R79.89 Other specified abnormal findings of blood chemistry; E11.9 Type 2 diabetes mellitus without complications; I48.91 Unspecified atrial fibrillation; Z85.038 Personal history of other malignant neoplasm of large intestine; Z85.46 Personal history of malignant neoplasm of prostate; Z79.4 Long term (current) use of insulin
CPT/HCPCS: Q9967; S0164

== ENCOUNTER 2023-07-17 14:39 | Inpatient (IN) | payer MEDICARE ==
[2023-07-17] VITALS (7 sets, daily range): BP systolic 111–132; BP diastolic 54–72
[~2023-07-17] VITALS: Ht 182.9 cm; Wt 82.4 kg
[~2023-07-17 14:39] MED LIST changes: +ONDANSETRON ODT8 MG PO
--- NOTE | 2023-07-17 14:40 | NUR ---
ASSIST X 3 TO RETRIEVE PATIENT FROM CAR. PATIENT TO ROOM VIA WHEELCHAIR WITH ASSISTANCE X 3 TO GET INTO BED. PATIENT IS WEAK AND UNSTEADY
--- NOTE | 2023-07-17 15:30 | NUR ---
PATIENT RESTING IN BED, FAMILY AT BEDSIDE, EDUCATED ON CONT WAIT TIME
[2023-07-17 15:58] LABS: ALBUMIN 4.1 g/dL (3.2-5.0); ALKALINE PHOSPHATASE 267 u/l (38-126); ANION GAP 11 (6-22 (CALC)); BILIRUBIN, TOTAL 0.9 mg/dL (0.2-1.3); BUN 15 mg/dL (8-23); BUN/CREATININE RATIO 17 (12-20 (CALC)); CARBON DIOXIDE 29 mmol/l (22-30); CHLORIDE 98 mmol/l (95-108); CREATININE 0.9 mg/dL (0.7-1.3); GFR FOR AFR.AMER. > 60 ML/MIN (>=60 (CALC)); GFR OTHER RACES > 60 ML/MIN (>=60 (CALC)); LIPASE 78 u/l (23-300); POTASSIUM 3.9 mmol/l (3.5-5.1); SGOT/AST 724 u/l (19-48); SODIUM 133 mmol/l (137-146); TOTAL PROTEIN 7.7 g/dL (6.3-8.2)
[2023-07-17 16:02] LABS: BASO% 0.6 % (0-3); EOS% 0.6 % (0-8); HEMOGLOBIN 12.7 g/dl (14.0-18.0); IMMATURE GRANULOCYTES 0.6 % (0.0-5.0); LYMPH% 26.9 % (15-41); MEAN CELL VOLUME 93.9 fL CALC (80.0-100.0); MEAN CORPUSCULAR HGB 32.2 pG CALC (26.0-32.0); MEAN CORPUSCULAR HGB CONC 34.3 g/dL CAL (32.0-36.0); MONO% 33.9 % (2-13); NEUT# 0.64 thou/uL (1.82-7.42); NEUT% 37.4 % (42-76); RED BLOOD COUNT 3.94 mill/uL (4.70-6.10); RED CELL DISTRI WIDTH 16.3 % (11.5-15.5)
--- NOTE | 2023-07-17 16:56 | NUR ---
PATIENT MEDICATED FOR A FEVER, EDUCATED FAMILY ON WHY BLANKET IS RESTRICTED AT THIS TIME.
[2023-07-17 17:06] LABS: URINE BILIRUBIN - DIPSTICK Negative (NEGATIVE); URINE BLOOD DIPSTICK Negative (NEGATIVE); URINE GLUCOSE - DIPSTICK Negative (NEGATIVE); URINE KETONE Negative (NEGATIVE); URINE LEUK ESTERASE Negative (NEGATIVE); URINE NITRITE - DIPSTICK Negative (Negative); URINE PH 7.5 (4.5-8.0); URINE PROTEIN - DIPSTICK Negative (NEG-TRACE); URINE UROBILINOGEN - DIPSTICK 0.2 E.U./dL (0.2)
[2023-07-17 17:07] LABS: URINE COLOR Yellow
--- NOTE | 2023-07-17 17:51 | NUR ---
PATIENT RESTING IN BED, FAMILY AT BEDSIDE. EMPTIED 450 ML OF URINE FROM URINAL. URINE COLLECTED FOR LAB.
--- NOTE | 2023-07-17 17:53 | NUR ---
TEMPERATURE RECHECK, FEVER HAS REDUCED TO 99.9.
--- NOTE | 2023-07-17 18:30 | NUR ---
REPORT CALLED TO MED SURG, RN. PATIENT TAKEN BY NURSE TO ROOM ON MED SURG.
--- NOTE | 2023-07-17 18:30 | NUR ---
PATIENT ARRIVED TO UNIT WITH FAMILY AT BEDSIDE. PATIENT SITTING SIDE OF BED. CALL LIGHT WITHIN REACH.
[2023-07-17] MEDS ORDERED: MAALOX ADV1 CHW PO (20:02)
[2023-07-17] MEDS ORDERED: MIRALAX17 GM PO (20:12)
--- NOTE | 2023-07-17 20:21 | NUR ---
REPORT RECEIVED AT START OF SHIFT. PT SSITTING IN BED, ALERT AND ORIENTED X 3. FAMILY AT BEDSIDE. IV INFUSING RT CHEST PORT. ON SHIPPING ROOM SUPERVISOR. BED IS LOCKED. CALL LIGHT IN REACH
--- NOTE | 2023-07-17 22:38 | NUR ---
PT REQUESTED [facility] FOR "HEARTBURN" . MEDICATION WAS ORDERED AND GIVEN. PT REFUSED TO EAT DINNER. FROZEN MEAL WAS OFFERED ALONG WITH SNACKS AND FLUIDS. PT REFUSED. PM INSULIN HELD PER PT REQUEST HE DID NOT EAT. TEMP 100.4. RECEIVED TYLENOL. IV FLUIDS INFUSING ORDERED VIA RIGHT CHEST PORT. . IS AT BEDSIDE. SAFETY PRECAUTIONS MAINTAINED. CALL LIGHT IN REACH
[2023-07-18 00:34] VITALS: BP 100/55
[2023-07-18 04:41] VITALS: BP 104/56
[2023-07-18 06:10] VITALS: BP 109/68
[2023-07-18 06:11] LABS: ALKALINE PHOSPHATASE 201 u/l (38-126); ANION GAP 9 (6-22 (CALC)); BILIRUBIN, TOTAL 0.8 mg/dL (0.2-1.3); BUN 10 mg/dL (8-23); BUN/CREATININE RATIO 13 (12-20 (CALC)); CARBON DIOXIDE 28 mmol/l (22-30); CHLORIDE 103 mmol/l (95-108); CREATININE 0.8 mg/dL (0.7-1.3); GFR FOR AFR.AMER. > 60 ML/MIN (>=60 (CALC)); GFR OTHER RACES > 60 ML/MIN (>=60 (CALC)); POTASSIUM 3.6 mmol/l (3.5-5.1); SGOT/AST 263 u/l (19-48); SODIUM 136 mmol/l (137-146); TOTAL PROTEIN 6.2 g/dL (6.3-8.2)
[2023-07-18 06:13] LABS: BASO% 0.5 % (0-3); HEMATOCRIT 34.2 % (39.0-50.0); HEMOGLOBIN 11.6 g/dl (14.0-18.0); IMMATURE GRANULOCYTES 0.5 % (0.0-5.0); LYMPH% 43.6 % (15-41); MEAN CELL VOLUME 94.5 fL CALC (80.0-100.0); MEAN CORPUSCULAR HGB CONC 33.9 g/dL CAL (32.0-36.0); MONO% 29.7 % (2-13); NEUT# 0.48 thou/uL (1.82-7.42); NEUT% 24.7 % (42-76); RED BLOOD COUNT 3.62 mill/uL (4.70-6.10); RED CELL DISTRI WIDTH 16.7 % (11.5-15.5)
--- NOTE | 2023-07-18 06:13 | NUR ---
CRITICAL WBC 2.0 RECIEVED FROM RR. TREATMENT OPTIONS IN PLACE. AWARE.
[2023-07-18 06:23] LABS: ALBUMIN 3.2 g/dL (3.2-5.0)
--- NOTE | 2023-07-18 07:50 | NUR ---
PERFORMED BEDSIDE REPORT WITH NIGHTSHIFT NURSE. PT ON REVERSE ISOLATION PRECAUTIONS. PT NOTED SITTING UP HIGH FOWLERS IN BED, AT BEDSIDE. PT IS A/OX3, RM AIR, COMPLAINS OF HEADACHE AT THIS TIME. EDUCATED PT ON MED SCHEDULE AND PLAN OF CARE TODAY. RT CHEST PORT NOTED WITH FLUIDS RUNNING PER EMAR. TELE MONITOR IN PLACE. CALL LIGHT WITHIN REACH AND SAFETY PRECAUTIONS IN PLACE.
--- NOTE | 2023-07-18 08:53 | NUR ---
S: JESSY BRADY is a 77 M who presents with neutropenic fever. He has a history of paroxysmal A-fib, CAD, DM type 2, Prostate cancer, GERD, HTN and hyperlipidemia. All medications in patient's chart were reviewed. O: VS: BP 109/68 mmHg, P 80, RR 18 ,T 98.8 W 83.2 kg, HT 182.88 cm, Scr= 0.8 (1), CrCl= 72.8 mL/min. A: Blood culture is pending. P: Patient is on Cefepime 2 GM IV Q12H. Vancomycin ordered for pharmacy to dose. Start Vancomycin 1250mg IV Q12H. Vancomycin trough is drawn before the 4th dose on 07/19/2023 2030. Vancomycin goal trough is between 10-20 mcg/ml. Pharmacy will follow and or advise on antibiotics use as needed.
[2023-07-18 09:43] LABS: INTERNATIONAL NORMALIZED RATIO 1.9 RATIO (0.7-1.3); PROTHROMBIN TIME 18.7 SECONDS (9.0-12.5)
[2023-07-18 11:00] VITALS: BP 90/54
[2023-07-18 15:30] VITALS: BP 122/70
[2023-07-18 18:55] VITALS: BP 137/77
--- NOTE | 2023-07-18 20:20 | NUR ---
RECIVED BEDSIDE REPORT FROM DAYSHIFT NURSE. PT IS SITTING UP IN BED WITH AT BEDSIDE. NO COMPLAINTS OF PAIN OR DISCOMFOT. ADVISED PT OF CHANGE OF NURSE FOR THE NIGHT AND PLAN OF CARE. SAFTEY PRECAUTIONS IN PLACE AND CALL LIGHT WITHIN REACH.
[2023-07-19 00:21] VITALS: BP 100/60
[2023-07-19 04:33] VITALS: BP 118/61
[2023-07-19 05:25] LABS: HEMATOCRIT 35.4 % (39.0-50.0); HEMOGLOBIN 12.3 g/dl (14.0-18.0); MEAN CELL VOLUME 95.9 fL CALC (80.0-100.0); MEAN CORPUSCULAR HGB 33.3 pG CALC (26.0-32.0); MEAN CORPUSCULAR HGB CONC 34.7 g/dL CAL (32.0-36.0); RED BLOOD COUNT 3.69 mill/uL (4.70-6.10); RED CELL DISTRI WIDTH 16.8 % (11.5-15.5)
[2023-07-19 05:27] LABS: ALBUMIN 3.3 g/dL (3.2-5.0); ALKALINE PHOSPHATASE 207 u/l (38-126); ANION GAP 9 (6-22 (CALC)); BILIRUBIN, TOTAL 0.6 mg/dL (0.2-1.3); BUN 9 mg/dL (8-23); BUN/CREATININE RATIO 11 (12-20 (CALC)); CARBON DIOXIDE 27 mmol/l (22-30); CHLORIDE 103 mmol/l (95-108); CREATININE 0.8 mg/dL (0.7-1.3); GFR FOR AFR.AMER. > 60 ML/MIN (>=60 (CALC)); GFR OTHER RACES > 60 ML/MIN (>=60 (CALC)); MAGNESIUM 1.9 mg/dL (1.6-2.3); POTASSIUM 3.5 mmol/l (3.5-5.1); SGOT/AST 114 u/l (19-48); SODIUM 136 mmol/l (137-146); TOTAL PROTEIN 6.5 g/dL (6.3-8.2)
[2023-07-19 07:38] VITALS: BP 104/64
--- NOTE | 2023-07-19 07:40 | NUR ---
PERFROMED BEDSIDE REPORT WITH NIGHTSHIFT NURSE, PT NOTED SITTING UP FOWLERS IN BED. PT IS A/OX3, ON RM AIR, DENIES ANY PAIN AT THIS TIME. PT EATING SNACK DUE TO BLOOD SUGAR OF 65 THIS MORNING. EDUCATED PT ON PLAN OF CARE FOR TODAY. CALL LIGHT WITHIN REACH AND SAFETY PRECAUTIONS IN PLACE.
[2023-07-19 10:48] LABS: INTERNATIONAL NORMALIZED RATIO 1.6 RATIO (0.7-1.3); PROTHROMBIN TIME 14.9 SECONDS (9.0-12.5)
[2023-07-19 12:08] VITALS: BP 114/70
[2023-07-19 15:00] VITALS: BP 125/73
--- NOTE | 2023-07-19 19:00 | NUR ---
REPORT RECEIVED FROM Gordon WAHL LPN, CARE OF PT ASSUMED AT THIS TIME.
[2023-07-19 19:16] VITALS: BP 122/67
--- NOTE | 2023-07-19 21:00 | NUR ---
VANCO TROUGH DRAWN VIA [id number] W/O DIFFICULTY.
--- NOTE | 2023-07-19 21:10 | NUR ---
POINT OF CARE GLUCOSE 252 mg/dl. PT STATES "I'LL TELL YOU RIGHT NOW I'M NOT TAKING THAT FAST ACTING INSULIN." UPON FURTHER QUESTIONING PT PERCEIVES SLIDING SCALE COVERAGE RECEIVED PRIOR NIGHT CAUSED HIS SUGAR TO "GO TO LOW" IN THE 60S BY AM. INSULIN EDUCATION PROVIDED TO PT AND SPOUSE AT BEDSIDE. PT CONTINUES TO DECLINE SLIDING SCALE COVERAGE.
--- NOTE | 2023-07-19 22:15 | NUR ---
VANCO TROUGH 11ug/ml, VANCOMYCIN ADMINISTERED PRESCRIBED.
--- NOTE | 2023-07-20 | NUR ---
PT LAYING IN BED, EYES CLOSED, APPEARS TO BE SLEEPING COMFORTABLY, NO APPARENT DISTRESS, RESPIRATIONS REGULAR & UNLABORED. CALL REMAINS WITHIN REACH.
[2023-07-20 00:34] VITALS: BP 132/72
--- NOTE | 2023-07-20 04:13 | NUR ---
RECEIVED BEDSIDE REPORT FROM NIGHTSHIFT NURSE. PT IS SLEEPING COMFORTABLY IN BED AT THIS TIME. NO S/S OF DISTRESS. CALL LIGHT WITHIN REACH AND SAFETY PRECAUTIONS IN PLACE.
[2023-07-20 04:41] VITALS: BP 128/78
[2023-07-20 07:17] VITALS: BP 127/77
--- NOTE | 2023-07-20 09:10 | NUR ---
PT SITTING UP IN CHAIR ON THE PHONE, IN ROOM WITH PT. PT RECEIVED SHOWER AND IS DRESSED. DENIES ANY PAIN AT THIS TIME. EDUCATED PT ON PLAN OF CARE TODAY FOR TODAY. CALL LIGHT WITHIN REACH AND SAFETY PRECAUTIONS IN PLACE.
[2023-07-20 10:02] LABS: BASO% 0.2 % (0-3); EOS% 3.2 % (0-8); HEMATOCRIT 36.5 % (39.0-50.0); HEMOGLOBIN 12.5 g/dl (14.0-18.0); LYMPH% 19.6 % (15-41); MEAN CELL VOLUME 94.8 fL CALC (80.0-100.0); MEAN CORPUSCULAR HGB 32.5 pG CALC (26.0-32.0); MEAN CORPUSCULAR HGB CONC 34.2 g/dL CAL (32.0-36.0); MONO% 23.5 % (2-13); NEUT# 6.27 thou/uL (1.82-7.42); NEUT% 46.3 % (42-76); RED BLOOD COUNT 3.85 mill/uL (4.70-6.10); RED CELL DISTRI WIDTH 16.8 % (11.5-15.5)
[2023-07-20 10:18] LABS: ANION GAP 11 (6-22 (CALC)); BUN 9 mg/dL (8-23); BUN/CREATININE RATIO 11 (12-20 (CALC)); CARBON DIOXIDE 27 mmol/l (22-30); CHLORIDE 104 mmol/l (95-108); CREATININE 0.8 mg/dL (0.7-1.3); GFR FOR AFR.AMER. > 60 ML/MIN (>=60 (CALC)); GFR OTHER RACES > 60 ML/MIN (>=60 (CALC)); POTASSIUM 3.4 mmol/l (3.5-5.1); SODIUM 139 mmol/l (137-146)
[2023-07-20 10:23] LABS: IMMATURE GRANULOCYTES 7.2 % (0.0-5.0)
[2023-07-20 11:05] VITALS: BP 116/72
[2023-07-20] MEDS ORDERED: CIPROFLOXACN500 MG PO (14:22)
--- NOTE | 2023-07-20 14:38 | NUR ---
PT CHEST PORT DEACCESSED BY RN ON THE FLOOR PER PROTOCOL. Discharge instructions given. Patient verbalizes understanding of same. Discharged in stable condition via Wheelchair to Home with staff. All belongings sent with pt.
== END 2023-07-20 15:08 | disposition home health service (06) | DRG 809 ==
LOC: ED 14:39 → ED-I 15:34 → ED 15:34 → ED-I 17:00 → ED 17:42 → MS2 17:43
PROVIDERS: Family Medicine; Student in an Organized Health Care Education/Training Program; ADMIT Internal Medicine; ATTEND Internal Medicine
DX: D70.9 Neutropenia, unspecified (principal); C19 Malignant neoplasm of rectosigmoid junction; R50.81 Fever presenting with conditions classified elsewhere; I10 Essential (primary) hypertension; E11.9 Type 2 diabetes mellitus without complications; I48.0 Paroxysmal atrial fibrillation; K59.00 Constipation, unspecified; N40.0 Benign prostatic hyperplasia without lower urinary tract symptoms; E78.5 Hyperlipidemia, unspecified; K21.9 Gastro-esophageal reflux disease without esophagitis; Z79.4 Long term (current) use of insulin; Z79.899 Other long term (current) drug therapy; Z79.01 Long term (current) use of anticoagulants; Z85.46 Personal history of malignant neoplasm of prostate; Z20.822 Contact with and (suspected) exposure to COVID-19
CPT/HCPCS: J0692; J1447; J3370

== ENCOUNTER 2024-06-22 21:04 | Emergency (ER) | payer MEDICARE ==
[~2024-06-22] VITALS: Ht 182.9 cm; Wt 88.0 kg
[~2024-06-22 21:04] MED LIST changes: +CIPROFLOXACN500 MG PO; +MAALOX ADV1 CHW PO; +MIRALAX17 GM PO; +OZEMPIC 8 MG/3M1 INJ SC
[2024-06-22 21:15] VITALS: BP 120/54
[2024-06-22] MEDS ORDERED: IBUPROFEN 600 MG/TAB PO ONE (21:20)
[2024-06-22] MEDS ORDERED: SODIUM CHLORIDE 0.9% 1,000 ML IV ONE (21:20)
[2024-06-22 21:31] VITALS: BP 112/54
[2024-06-22 21:45] LABS: BASO% 0.4 % (0-3); EOS% 1.4 % (0-8); HEMATOCRIT 35.8 % (39.0-50.0); HEMOGLOBIN 11.9 g/dl (14.0-18.0); IMMATURE GRANULOCYTES 0.2 % (0.0-5.0); LYMPH% 10.1 % (15-41); MEAN CORPUSCULAR HGB 31.2 pG CALC (26.0-32.0); MEAN CORPUSCULAR HGB CONC 33.2 g/dL CAL (32.0-36.0); NEUT# 4.27 thou/uL (1.82-7.42); NEUT% 76.9 % (42-76); RED BLOOD COUNT 3.81 mill/uL (4.70-6.10); RED CELL DISTRI WIDTH 12.4 % (11.5-15.5)
[2024-06-22 22:03] LABS: ALBUMIN 3.5 g/dL (3.2-5.0); CREATININE 0.8 mg/dL (0.7-1.3); MAGNESIUM 1.6 mg/dL (1.6-2.3); POTASSIUM 3.4 mmol/l (3.5-5.1); TOTAL PROTEIN 6.6 g/dL (6.3-8.2)
[2024-06-22 22:04] LABS: BILIRUBIN, TOTAL 1.3 mg/dL (0.2-1.3)
[2024-06-22 22:37] VITALS: BP 134/73
[2024-06-22 22:59] LABS: URINE BILIRUBIN - DIPSTICK Negative (NEGATIVE); URINE BLOOD DIPSTICK Negative (NEGATIVE); URINE GLUCOSE - DIPSTICK 500 mg/dL (NEGATIVE); URINE KETONE Negative (NEGATIVE); URINE LEUK ESTERASE Negative (NEGATIVE); URINE NITRITE - DIPSTICK Negative (Negative); URINE PROTEIN - DIPSTICK Negative (NEG-TRACE)
[2024-06-22 23:00] VITALS: BP 129/75
[2024-06-22 23:02] LABS: URINE COLOR Yellow
[2024-06-22] MEDS ORDERED: PAXLOVID PO (23:11)
[2024-06-22] MEDS ORDERED: HEPARIN SODIUM FLUSH (PORCINE) 100 UNIT/ML 5 ML SYR IV ONE (23:20)
[2024-06-22 23:31] VITALS: BP 140/82
[2024-06-22 23:47] VITALS: BP 140/82
== END 2024-06-22 23:47 | disposition home or self-care (01) ==
LOC: ED 21:04
PROVIDERS: Family Medicine
DX: U07.1 COVID-19 (principal); R50.9 Fever, unspecified; R09.89 Other specified symptoms and signs involving the circulatory and respiratory systems; J02.9 Acute pharyngitis, unspecified; E11.9 Type 2 diabetes mellitus without complications; I10 Essential (primary) hypertension; K21.9 Gastro-esophageal reflux disease without esophagitis; Z85.038 Personal history of other malignant neoplasm of large intestine; Z79.4 Long term (current) use of insulin

== ENCOUNTER 2024-08-01 03:43 | Emergency (ER) | payer MEDICARE ==
[~2024-08-01] VITALS: Ht 182.9 cm; Wt 88.0 kg
[~2024-08-01 03:43] MED LIST changes: +PAXLOVID PO
[2024-08-01 03:58] VITALS: BP 126/74
[2024-08-01 04:00] VITALS: BP 133/73
[2024-08-01 05:00] VITALS: BP 133/73
== END 2024-08-01 05:00 | disposition home or self-care (01) ==
LOC: ED 03:43
DX: T83.038A Leakage of other urinary catheter, initial encounter (principal); C19 Malignant neoplasm of rectosigmoid junction; I10 Essential (primary) hypertension; E11.9 Type 2 diabetes mellitus without complications; K21.9 Gastro-esophageal reflux disease without esophagitis; Y83.3 Surgical operation with formation of external stoma as the cause of abnormal reaction of the patient, or of later complication, without mention of misadventure at the time of the procedure; Z72.0 Tobacco use; Z93.3 Colostomy status; Z98.890 Other specified postprocedural states; Z79.4 Long term (current) use of insulin

== ENCOUNTER 2024-08-26 17:20 | Emergency (ER) | payer MEDICARE ==
[~2024-08-26] VITALS: Ht 182.9 cm; Wt 81.6 kg
[2024-08-26 17:37] VITALS: BP 169/150
[2024-08-26 18:12] VITALS: BP 106/65
[2024-08-26] MEDS ORDERED: KETOROLAC TROMETHAMINE 30 MG/ML SDV IV ONE (18:30)
== END 2024-08-26 18:29 | disposition home or self-care (01) ==
LOC: ED 17:20
DX: T83.038A Leakage of other urinary catheter, initial encounter (principal); I10 Essential (primary) hypertension; E11.9 Type 2 diabetes mellitus without complications; Z85.038 Personal history of other malignant neoplasm of large intestine; Z79.4 Long term (current) use of insulin; Z72.0 Tobacco use; Y83.3 Surgical operation with formation of external stoma as the cause of abnormal reaction of the patient, or of later complication, without mention of misadventure at the time of the procedure

== ENCOUNTER 2024-10-24 13:46 | Emergency (ER) | payer MEDICARE ==
[2024-10-24] VITALS (11 sets, daily range): BP systolic 90–126; BP diastolic 46–65
[~2024-10-24] VITALS: Ht 182.9 cm; Wt 84.5 kg
[2024-10-24] MEDS ORDERED: SODIUM CHLORIDE 0.9% 1,000 ML IV ONE (14:20)
[2024-10-24] MEDS ORDERED: ACETAMINOPHEN 500 MG TAB PO ONE ×2 (14:20→19:55)
[2024-10-24] MEDS ORDERED: ACETAMINOPHEN 1,000 MG/100 ML VIAL IV ONE (14:40)
[2024-10-24 15:01] LABS: BASO% 0.1 % (0-3); EOS% 0.1 % (0-8); HEMATOCRIT 38.1 % (39.0-50.0); HEMOGLOBIN 11.9 g/dl (14.0-18.0); IMMATURE GRANULOCYTES 0.3 % (0.0-5.0); LYMPH% 5.2 % (15-41); MEAN CORPUSCULAR HGB 27.8 pG CALC (26.0-32.0); MEAN CORPUSCULAR HGB CONC 31.2 g/dL CAL (32.0-36.0); MONO% 7.3 % (2-13); NEUT# 12.22 thou/uL (1.82-7.42); RED BLOOD COUNT 4.28 mill/uL (4.70-6.10); RED CELL DISTRI WIDTH 13.6 % (11.5-15.5)
[2024-10-24 15:14] LABS: ALBUMIN 4.5 g/dL (3.2-5.0); TOTAL PROTEIN 8.4 g/dL (6.3-8.2)
[2024-10-24 15:20] LABS: BILIRUBIN, TOTAL 1.1 mg/dL (0.2-1.3)
[2024-10-24] MEDS ORDERED: ISOVUE-300 (Iopamidol) 100 ML SDV IV ONE ×2 (16:05)
[2024-10-24] MEDS ORDERED: cefTRIAXone SODIUM 2 GM in SODIUM CHLORIDE 0.9% 100 ML IV ONE (16:10)
[2024-10-24 16:12] LABS: URINE BILIRUBIN - DIPSTICK Negative (NEGATIVE); URINE BLOOD DIPSTICK Trace-intact (NEGATIVE); URINE COLOR Yellow; URINE GLUCOSE - DIPSTICK >=1000 mg/dL (NEGATIVE); URINE KETONE Negative (NEGATIVE); URINE LEUK ESTERASE Negative (NEGATIVE); URINE NITRITE - DIPSTICK Positive (Negative); URINE PH 5.5 (4.5-8.0); URINE PROTEIN - DIPSTICK Negative (NEG-TRACE); URINE UROBILINOGEN - DIPSTICK 0.2 E.U./dL (0.2)
[2024-10-24 16:18] LABS: URINE BACTERIA MANY hpf; URINE RBC 0-2 RBC/hpf (0-5)
[2024-10-24] MEDS ORDERED: BACTRIM DS1 TAB PO (19:55)
[2024-10-24] MEDS ORDERED: HEPARIN SODIUM FLUSH (PORCINE) 100 UNIT/ML 5 ML SYR IV ONE (20:30)
== END 2024-10-24 21:05 | disposition home or self-care (01) ==
LOC: ED 13:46
PROVIDERS: Family Medicine
DX: N39.0 Urinary tract infection, site not specified (principal); R79.89 Other specified abnormal findings of blood chemistry; I10 Essential (primary) hypertension; E11.9 Type 2 diabetes mellitus without complications; K21.9 Gastro-esophageal reflux disease without esophagitis; Z79.4 Long term (current) use of insulin; Z72.0 Tobacco use; Z85.038 Personal history of other malignant neoplasm of large intestine; Z85.46 Personal history of malignant neoplasm of prostate; Z93.3 Colostomy status; Z93.6 Other artificial openings of urinary tract status; Z20.822 Contact with and (suspected) exposure to COVID-19
CPT/HCPCS: J0131; Q9967

== ENCOUNTER 2024-12-28 14:35 | Observation (INO) | payer MEDICARE ==
[2024-12-28] VITALS (23 sets, daily range): BP systolic 75–123; BP diastolic 47–73
[~2024-12-28] VITALS: Ht 182.9 cm; Wt 87.0 kg
[~2024-12-28 14:35] MED LIST changes: +BACTRIM DS1 TAB PO
[2024-12-28] MEDS ORDERED: ACETAMINOPHEN 325 MG/TAB PO ONE (15:15)
[2024-12-28] MEDS ORDERED: SODIUM CHLORIDE 0.9% 1,000 ML IV ONE ×2 (15:15→16:50)
[2024-12-28 15:33] LABS: BASO% 0.1 % (0-3); EOS% 0.2 % (0-8); HEMATOCRIT 35.5 % (39.0-50.0); HEMOGLOBIN 10.8 g/dl (14.0-18.0); IMMATURE GRANULOCYTES 0.1 % (0.0-5.0); LYMPH% 9.1 % (15-41); MEAN CELL VOLUME 82.2 fL CALC (80.0-100.0); MEAN CORPUSCULAR HGB CONC 30.4 g/dL CAL (32.0-36.0); MONO% 8.3 % (2-13); NEUT% 82.2 % (42-76); RED BLOOD COUNT 4.32 mill/uL (4.70-6.10); RED CELL DISTRI WIDTH 15.1 % (11.5-15.5)
[2024-12-28 15:46] LABS: CREATININE 1.1 mg/dL (0.7-1.3); TOTAL PROTEIN 7.6 g/dL (6.3-8.2)
[2024-12-28 15:53] LABS: BILIRUBIN, TOTAL 2.1 mg/dL (0.2-1.3)
[2024-12-28 16:06] LABS: URINE BLOOD DIPSTICK Trace-intact (NEGATIVE); URINE GLUCOSE - DIPSTICK >=1000 mg/dL (NEGATIVE); URINE KETONE Negative (NEGATIVE); URINE LEUK ESTERASE Negative (NEGATIVE); URINE PH 6.5 (4.5-8.0); URINE PROTEIN - DIPSTICK Negative (NEG-TRACE); URINE UROBILINOGEN - DIPSTICK 0.2 E.U./dL (0.2)
[2024-12-28 16:12] LABS: URINE COLOR Yellow; URINE NITRITE - DIPSTICK Positive (Negative)
[2024-12-28 16:13] LABS: URINE RBC 0-2 RBC/hpf (0-5)
[2024-12-28 16:14] LABS: URINE BACTERIA MANY hpf; URINE SQUAMOUS EPITHELIAL CELL FEW EPI/hpf (0-FEW)
[2024-12-28] MEDS ORDERED: cefTRIAXone SODIUM 2 GM in SODIUM CHLORIDE 0.9% 100 ML IV ONE (18:25)
[2024-12-28] MEDS ORDERED: WARFARIN SODIUM4 MG PO (19:55)
[2024-12-28] MEDS ORDERED: MAGNESIUM HYDROXIDE 30 ML UDC PO PRN (20:00)
[2024-12-28] MEDS ORDERED: SODIUM CHLORIDE 0.9% 1,000 ML IV PRN (20:00)
[2024-12-28] MEDS ORDERED: ACETAMINOPHEN 325 MG/TAB PO PRN (20:00)
[2024-12-28] MEDS ORDERED: ENOXAPARIN SODIUM 40 MG/0.4 ML SYR SC SCH (21:00)
[2024-12-28] MEDS ORDERED: INSULIN GLARGINE 100 UNITS/ML SC SCH (22:00)
[2024-12-29 04:29] VITALS: BP 99/60
[2024-12-29 05:39] VITALS: BP 99/60
[2024-12-29 07:29] VITALS: BP 117/51
[2024-12-29 08:42] VITALS: BP 117/51
[2024-12-29] MEDS ORDERED: PANTOPRAZOLE SODIUM Sesquihydr 40 MG/TAB PO SCH (09:00)
[2024-12-29] MEDS ORDERED: ATENOLOL 25 MG TAB PO SCH (09:00)
[2024-12-29 10:33] LABS: INTERNATIONAL NORMALIZED RATIO 3.9 RATIO (0.7-1.3); PROTHROMBIN TIME 38.5 SECONDS (9.0-12.5)
[2024-12-29] MEDS ORDERED: OMNICEF300 MG PO (10:57)
[2024-12-29] MEDS ORDERED: HEPARIN SODIUM FLUSH (PORCINE) 100 UNITS/ML 3 ML SYR IV PRN (12:50)
[2024-12-29] MEDS ORDERED: SODIUM CHLORIDE 0.9% 10 ML SYR IV PRN (12:50)
[2024-12-29] MEDS ORDERED: ATORVASTATIN CALCIUM 40 MG/TAB PO SCH (21:00)
== END 2024-12-29 13:18 | disposition home or self-care (01) ==
LOC: ED 14:35 → MS2 18:34
PROVIDERS: Family Medicine; ADMIT Internal Medicine; ATTEND Internal Medicine
DX: N39.0 Urinary tract infection, site not specified (principal); I95.9 Hypotension, unspecified; I10 Essential (primary) hypertension; E11.9 Type 2 diabetes mellitus without complications; I48.0 Paroxysmal atrial fibrillation; I25.10 Atherosclerotic heart disease of native coronary artery without angina pectoris; K21.9 Gastro-esophageal reflux disease without esophagitis; E78.5 Hyperlipidemia, unspecified; R79.1 Abnormal coagulation profile; T45.515A Adverse effect of anticoagulants, initial encounter; Z93.3 Colostomy status; Z93.50 Unspecified cystostomy status; Z79.4 Long term (current) use of insulin; Z72.0 Tobacco use; Z87.440 Personal history of urinary (tract) infections; Z79.01 Long term (current) use of anticoagulants; Z85.46 Personal history of malignant neoplasm of prostate; Z85.038 Personal history of other malignant neoplasm of large intestine; Z20.822 Contact with and (suspected) exposure to COVID-19
CPT/HCPCS: G0378; J0696; J1815; Q9967